=== PATIENT | female | born 1975 | race Caucasian/White ===

== ENCOUNTER 2019-07-17 16:25 | Emergency (ER) | payer BC ==
[2019-07-17] MEDS ORDERED: Ketorolac 60 MG/2 ML SDV IM ONE (17:26)
--- NOTE | 2019-07-17 17:31 | EDM.PDOC ---
<Ken Solorio G - Last Filed: 07/17/19 17:58> ED HPI GENERAL MEDICAL PROBLEM - General Chief Complaint: Back Pain or Injury Stated Complaint: LOW BACK PAIN Time Seen by Provider: 07/17/19 17:15 Source of Information: Reports: Patient, Old Records, RN History Limitations: Reports: No Limitations - History of Present Illness INITIAL COMMENTS - FREE TEXT/NARRATIVE: 43 yo female here with L low back pain that began last evening and has progressed since then. She took a dose of acetaminophen last night, but none today. Has tried heat and cold without relief. Has a pHx of arthritis, but this pain is different. Denies injury or recent exertion. Too painful to go to work at [employer] today. drove her here. No attempt to be seen in the clinic. Has Vicodin to use prn for her arthritis pain, but is out now. No urinary sx's. Pain is worse with movement. No radiation down her legs. 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: Other (see below) (heat) Left Back Pain Score (Numeric/FACES): 10 - Related Data Allergies Allergy/AdvReac Type Severity Reaction Status Date / Time No Known Allergies Allergy Verified 07/17/19 16:53 Home Meds: Home Meds NK [No Known Home Meds] 07/17/19 [History] Past Medical History HEENT History: Reports: Impaired 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: Musculoskeletal History: Reports: Back Pain, Chronic, Fracture, Other (See Below ) Other Musculoskeletal History: DJD Neurological History: Reports: Migraines, Other (See Below) Other Neuro History: soliosis - Past Surgical History Female Surgical History: Reports: Section, Tubal Ligation Musculoskeletal Surgical History: Reports: Other (See Below) Other Musculoskeletal Surgeries/Procedures:: ORIF of bilateral ankles Social & Family History - Tobacco Use Smoking Status *Q: Former Smoker Used Tobacco, but Quit: Yes Month/Year Tobacco Last Used: 11/2018 - Caffeine Use Caffeine Use: Reports: Coffee, Soda - Recreational Drug Use Recreational Drug Use: No ED ROS GENERAL - Review of Systems Review Of Systems: See Below Constitutional: Reports: No Symptoms HEENT: Reports: No Symptoms Respiratory: Reports: No Symptoms Cardiovascular: Reports: No Symptoms GI/Abdominal: Reports: No Symptoms : Reports: No Symptoms Musculoskeletal: Reports: Back Pain (L low) Skin: Reports: No Symptoms Neurological: Reports: No Symptoms ED EXAM,LOWER BACK PAIN/INJURY - Physical Exam Exam: See Below Exam Limited By: No Limitations General Appearance: Alert, WD/WN, No Apparent Distress Head: Atraumatic, Normocephalic Respiratory/Chest: No Respiratory Distress, Lungs Clear, Normal Breath Sounds Cardiovascular: Regular Rate, Rhythm, No Edema Back Exam: Normal Inspection, Other (L SI joint pain, no lumbar pain on palpation, but does have increased lumbar pain with truncal movement. ). No: CVA Tenderness (R), CVA Tenderness (L), Muscle Spasm, Paraspinal Tenderness, Vertebral Tenderness Extremities: Normal Inspection, Normal Range of Motion, Non-Tender, No Pedal Edema Neurological: Alert, Normal Mood/Affect, CN II-XII Intact, No Motor/Sensory Deficits, Oriented x 3 Psychiatric: Normal Affect, Normal Mood Skin Exam: Warm, Dry, Intact, Normal Color, No Rash Course - Vital Signs Last Recorded V/S: Last Vital Signs Temp 97.9 F 07/17/19 16:51 Pulse 74 07/17/19 16:51 Resp 16 07/17/19 16:51 BP 141/84 H 07/17/19 16:51 Pulse Ox 98 07/17/19 16:51 - Orders/Labs/Meds Meds: Medications Discontinued Medications Generic Name Dose Route Start Last Admin Trade Name Freq PRN Reason Stop Dose Admin Fentanyl 50 mcg 07/17/19 18:55 07/17/19 19:03 Sublimaze IM 07/17/19 18:56 50 mcg ONETIME ONE Administration Ketorolac Tromethamine 60 mg 07/17/19 17:26 07/17/19 17:44 Toradol IM 07/17/19 17:27 60 mg ONETIME ONE Administration Departure - Departure Disposition: Home, Self-Care 01 Clinical Impression: Chronic SI joint pain - Discharge Information Instructions: Pain Medicine Instructions, Sacroiliac Joint Dysfunction Referrals: PCP,None [Primary Care Provider] - Forms: ED Department Discharge, ED Return to Work/School Form Additional Instructions: Use ibuprofen for baseline pain control use hydrocodone for breakthrough pain please establish with primary care here in [facility] follow-up with primary care in the next 3 to 5 days for further evaluation, call return to the emergency department worsening of symptoms Sepsis Event Note - Evaluation Sepsis Screening Result: No Definite Risk - Focused Exam Vital Signs: Vital Signs Temp Pulse Resp BP Pulse Ox 07/17/19 16:51 97.9 F 74 16 141/84 H 98 07/17/19 16:42 97.9 F 74 16 141/84 H 98 Date Exam was Performed: 07/17/19 Time Exam was Performed: 17:58 <OfficerWoody - Last Filed: 07/17/19 20:29> Departure - Departure Time of Disposition: 20:28 Condition: Fair Sepsis Event Note - Focused Exam Date Exam was Performed: 07/17/19 Time Exam was Performed: 20:22 - Assessment/Plan Plan: Assessment Acuity = acute on chronic Site and laterality = right-sided SI joint pain complicated patient with known history of degenerative joint disease Etiology = unknown Manifestations = none Location of injury = Home Lab values = lumbar films reveal no acute process Plan She had some relief with the initial Toradol injection provided was provided fentanyl 50 mics which provided significant pain relief I therefore should be discharged home with hydrocodone 5/325 1 tab p.o. 3 times daily PRN total #18 she is going to establish with a primary care here [facility] This note was dictated using [employer] voice recognition software please call with any questions on syntax or grammar.
[2019-07-17] MEDS ORDERED: fentaNYL 100 MCG/2 ML SDV IM ONE (18:55)
--- NOTE | 2019-07-17 19:53 | CRLCR ---
INDICATION: Right side L5 pain. TECHNIQUE: Lumbar spine 3 view COMPARISON: None FINDINGS: Bones: Alignment is normal. No fractures or significant bone lesions. Joints: Disc spaces and facets are unremarkable. Soft tissues: Unremarkable. IMPRESSION: Unremarkable lumbar spine. No findings to explain pain. Dictated by Gorge Mendez MD @ 07/17/2019 7:51:53 PM Dictated by: Gorge Mendez MD @ 07/17/2019 19:52:01 (Electronically Signed)
== END 2019-07-17 20:39 | disposition home or self-care (01) ==
LOC: JP.ED 16:25
DX: M53.3 Sacrococcygeal disorders, not elsewhere classified (principal); Z87.891 Personal history of nicotine dependence
CPT/HCPCS: 72100; 96372; 99283; J1885; J3010

== ENCOUNTER 2020-08-31 19:30 | Emergency (ER) | payer BC ==
--- NOTE | 2020-08-31 21:48 | EDM.PDOC ---
ED HPI GENERAL MEDICAL PROBLEM - General Chief Complaint: Genitourinary Problem Stated Complaint: LOWER BACK AND HIP PAIN, POSSIBLE UTI Time Seen by Provider: 08/31/20 21:00 Source of Information: Reports: Patient History Limitations: Reports: No Limitations - History of Present Illness INITIAL COMMENTS - FREE TEXT/NARRATIVE: Lois is a 43 year old female whom [place] the area presenting to ER for severe lower back pain which started 2 days ago after moving (rearranging living room furniture without known injury or concern. Lois tried ibuprofen 400mg and Flexeril without improvement of symptoms at home. Lois has a history of scoliosis with known mild chronic pain but not this severe with pain radiating to bilateral anterior hips and upper lateral thighs. Lois denies any urinary symptoms or abdominal pain but concerned symptoms may be due to urinary tract infection. Lois denies pelvic pain, abnormal vaginal bleeding or pain with intercourse. bilateral lower back Pain Score (Numeric/FACES): 9 - Related Data Allergies Allergy/AdvReac Type Severity Reaction Status Date / Time No Known Allergies Allergy Verified 08/31/20 21:04 Home Meds: Home Meds SUMAtriptan succinate [Imitrex] 50 mg PO ASDIRECTED PRN 08/31/20 [History] Topiramate [Topamax] 25 mg PO DAILY 08/31/20 [History] methocarbamoL [Robaxin] 500 - 1,000 mg PO TID PRN 10 Days #30 tab 08/31/20 [Rx] predniSONE [Prednisone] 40 mg PO DAILY 5 Days #10 tablet 08/31/20 [Rx] Past Medical History HEENT History: Reports: Impaired Vision, Other (See Below) Other HEENT History: glasses Genitourinary History: Reports: None 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: Musculoskeletal History: Reports: Back Pain, Chronic, Fracture, Other (See Below) Other Musculoskeletal History: DJD Neurological History: Reports: Migraines, Other (See Below) Other Neuro History: scoliosis Dermatologic History: Reports: Eczema - Infectious Disease History Infectious Disease History: Reports: Chicken Pox - Past Surgical History HEENT Surgical History: Reports: Oral Surgery Female Surgical History: Reports: Section, Tubal Ligation Musculoskeletal Surgical History: Reports: Other (See Below) Other Musculoskeletal Surgeries/Procedures:: ORIF of bilateral ankles Social & Family History - Tobacco Use Tobacco Use Status *Q: Never Tobacco User - Caffeine Use Caffeine Use: Reports: Soda - Recreational Drug Use Recreational Drug Use: No ED ROS GENERAL - Review of Systems Review Of Systems: Comprehensive ROS is negative, except as noted in HPI. ED EXAM,LOWER BACK PAIN/INJURY - Physical Exam Exam: See Below Exam Limited By: No Limitations General Appearance: Alert, WD/WN, No Apparent Distress Eye Exam: Bilateral Eye: Normal Inspection Ears: Hearing Grossly Normal Nose: Normal Inspection Throat/Mouth: Normal Voice, No Airway Compromise Neck: Normal Inspection Respiratory/Chest: No Respiratory Distress Cardiovascular: Normal Peripheral Pulses GI/Abdominal: Normal Bowel Sounds, Soft, Non-Tender Back Exam: Paraspinal Tenderness, Vertebral Tenderness (lumbar spine right worsen than left to palpation. ) Extremities: Normal Inspection, Normal Range of Motion, Non-Tender Neurological: Alert, Normal Mood/Affect, Normal Dorsiflexion Psychiatric: Normal Affect, Normal Mood Skin Exam: Warm, Dry, Intact, Normal Color Course - Vital Signs Last Recorded V/S: Last Vital Signs Temp 36.5 C 08/31/20 21:06 Pulse 55 L 08/31/20 21:06 Resp 14 08/31/20 21:06 BP 139/90 08/31/20 21:06 Pulse Ox 100 08/31/20 21:06 - Orders/Labs/Meds Orders: Active Orders 24 hr Category Date Time Status Preg Urine [HCG QUALITATIVE,URINE] [URCHEM] Stat Lab 08/31/20 21:16 Ordered UA W/MICROSCOPIC [URIN] Stat Lab 08/31/20 21:16 Ordered Labs: Laboratory Tests 08/31/20 08/31/20 Range/Units 19:46 19:46 Urine Color Yellow (YELLOW) Urine Appearance Clear (CLEAR) Urine pH 5.0 (5.0-8.0) Ur Specific [place] >= 1.030 (1.008-1.030) Urine Protein Negative (NEGATIVE) mg/dL Urine Glucose (UA) Negative (NEGATIVE) mg/dL Urine Ketones Negative (NEGATIVE) mg/dL Urine Occult Blood Negative (NEGATIVE) Urine Nitrite Negative (NEGATIVE) Urine Bilirubin Negative (NEGATIVE) Urine Urobilinogen 0.2 (0.2-1.0) EU/dL Ur Leukocyte Esterase Negative (NEGATIVE) Urine RBC 0-5 (0-5) Urine WBC 0-5 (0-5) Ur Epithelial Cells Rare Amorphous Sediment Not seen Urine Bacteria Rare Urine Mucus Rare Urine HCG, Qual Negative Departure - Departure Time of Disposition: 22:01 Disposition: Home, Self-Care 01 Clinical Impression: Lumbar back sprain - Discharge Information Prescriptions: predniSONE [Prednisone] 40 mg PO DAILY 5 Days #10 tablet methocarbamoL [Robaxin] 500 - 1,000 mg PO TID PRN 10 Days #30 tab PRN Reason: Muscle Spasm - Painful Instructions: Lumbar Sprain, Acute Back Pain, Adult, Lumbosacral Strain, Low Back Sprain or Strain Rehab-SportsMed, Back Injury Prevention Referrals: Irnieo Alexandre 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 Call clinic in am to discuss referral to physical therapy for acute back pain with work limitations. 2. Prednisone 40mg every am with food x 5 days (may cause difficulty sleeping). 3. Robaxin 500mg 1,000 mg every 8 hrs for painful muscle spasms. May take during renetta day if pain and not working/drining. May consider onl;y taking at night. 4. Tylenol 500-1000mg every 6 horsu as needed for mild pain. 5. Naproxen 440 (aleve 2 tablet) every 8-12 hrs with food for pain swelling and inflammation, not same time as Prednisone. OR Ibuprofen 600-800mg every 6-8 hrs with food for pain, swelling and inflammation, not with Naproxen or prednisone. 6. Read stretching recommended before PT appointment. Note for work written. Sepsis Event Note (ED) - Evaluation Sepsis Screening Result: No Definite Risk - Focused Exam Vital Signs: Vital Signs Temp Pulse Resp BP Pulse Ox 08/31/20 21:06 36.5 C 55 L 14 139/90 100 08/31/20 20:45 36.5 C 55 L 14 139/90 100 - My Orders Last 24 Hours: My Active Orders 08/31/20 21:16 Preg Urine [HCG QUALITATIVE,URINE] [URCHEM] Stat UA W/MICROSCOPIC [URIN] Stat - Assessment/Plan Last 24 Hours: My Active Orders 08/31/20 21:16 Preg Urine [HCG QUALITATIVE,URINE] [URCHEM] Stat UA W/MICROSCOPIC [URIN] Stat
== END 2020-08-31 22:17 | disposition home or self-care (01) ==
LOC: JP.ED 19:30
DX: S33.5XXA Sprain of ligaments of lumbar spine, initial encounter (principal); X58.XXXA Exposure to other specified factors, initial encounter
CPT/HCPCS: 81001; 81025; 99283

== ENCOUNTER 2020-11-14 17:07 | Emergency (ER) | payer BC ==
--- NOTE | 2020-11-14 20:29 | EDM.PDOC ---
ED HPI GENERAL MEDICAL PROBLEM - General Chief Complaint: Upper Extremity Injury/Pain Stated Complaint: SWOLLEN FINGER , SLAMMED IN DOOR Time Seen by Provider: 11/14/20 20:10 Source of Information: Reports: Patient History Limitations: Reports: No Limitations - History of Present Illness INITIAL COMMENTS - FREE TEXT/NARRATIVE: Christelle is a 45-year-old female came to the ED for evaluation of a crush injury to her right fourth finger that occurred at 0530 hrs. this morning. Patient has taken her dogs out and somehow a fly got into the house. She had her hand on the door jam while talking on the phone and the fly landed on the back of the door. Her dog lunged at the fly hitting the door and slamming the door on her finger. Since then she has had increased pain and swelling. She has decreased range of motion. There is significant bruising of the proximal phalanx on the right fourth finger. She does have good sensation and distant capillary refill on this finger. Concerned because of the degree of swelling and bruising that she may have fractured the finger. 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: Musculoskeletal History: Reports: Back Pain, Chronic, Fracture, Other (See Below) Other Musculoskeletal History: DJD Neurological History: Reports: Migraines, Other (See Below) Other Neuro History: scoliosis Dermatologic History: Reports: Eczema - Infectious Disease History Infectious Disease History: Reports: Chicken Pox - Past Surgical History HEENT Surgical History: Reports: Oral Surgery Female Surgical History: Reports: Section, Tubal Ligation Musculoskeletal Surgical History: Reports: Other (See Below) Other Musculoskeletal Surgeries/Procedures:: ORIF of bilateral ankles Social & Family History - Tobacco Use Tobacco Use Status *Q: Former Tobacco User Used Tobacco, but Quit: Yes Month/Year Tobacco Last Used: 02/2018 Second Hand Smoke Exposure: No - Caffeine Use Caffeine Use: Reports: Coffee, Soda - Recreational Drug Use Recreational Drug Use: No Review of Systems - Review of Systems Review Of Systems: See Below Constitutional: Reports: No Symptoms Musculoskeletal: Reports: Hand Pain (Right fourth finger pain and swelling), Joint Pain (Swelling and reduced range of motion of the right fourth PIP), Joint Swelling Skin: Reports: Bruising (Significant bruising of the right fourth finger) Neurological: Reports: No Symptoms ED EXAM, GENERAL - Physical Exam Exam: See Below Exam Limited By: No Limitations General Appearance: Alert, Mild Distress Peripheral Pulses: 2+: Radial (R) Extremities: Normal Capillary Refill, Joint Swelling (Significant swelling over the PIP of the right fourth finger with ecchymosis), Limited Range of Motion (Significant reduction in flexion of the right fourth finger at the PIP and DIP secondary to swelling and pain.) Neurological: Alert, Oriented, Normal Cognition, No Motor/Sensory Deficits Skin Exam: Ecchymosis (Ecchymosis over the proximal right fourth phalanx) Course - Vital Signs Last Recorded V/S: Last Vital Signs Temp 36.2 C 11/14/20 20:16 Pulse 72 11/14/20 20:16 Resp 16 11/14/20 20:16 BP 119/88 11/14/20 20:16 Pulse Ox 99 11/14/20 20:16 - Orders/Labs/Meds Orders: Active Orders 24 hr Category Date Time Status Fingers Fourth Digit Rt F8 [CR] Stat Exams 11/14/20 20:10 Taken - Re-Assessments/Exams Free Text/Narrative Re-Assessment/Exam: 11/14/20 20:33 x-rays of the right fourth finger were obtained and show no evidence for an acute fracture. There is significant soft tissue swelling over the PIP. There is no dislocation or malalignment. This likely represents a crush injury with hematoma and joint swelling. We discussed management of this including ice, elevation, ibuprofen and Tylenol to reduce pain and swelling. I encouraged patient to use a tennis ball for gentle range of motion to prevent the joint from becoming stiff. Indications return to the ED were discussed. We will give her a work note taking her off the use of the right hand for the next 7 days. All questions were answered and she was in agreement with the plan. Departure - Departure Time of Disposition: 20:27 Disposition: Home, Self-Care 01 Clinical Impression: Crushing injury of finger of right hand - Discharge Information Instructions: Crush Injury of the Hand, [id number] Referrals: Irineo Alexandre NP [Primary Care Provider] - Forms: ED Department Discharge Care Plan Goals: I recommend ice and elevation to reduce the swelling. You may take Tylenol or ibuprofen for pain. Ibuprofen will help with reducing the inflammation. I will put you on work restrictions limiting use of right hand for the next 7 days so that we do not risk injuring other fingers at work. As we discussed I would recommend gentle range of motion using a tennis ball so that the joint does not become stiff. Do not do it if it is painful. I would expect this to significan tly improve over the next 4 to 5 days. Sepsis Event Note (ED) - Evaluation Sepsis Screening Result: No Definite Risk - Focused Exam Vital Signs: Vital Signs Temp Pulse Resp BP Pulse Ox 11/14/20 20:16 36.2 C 72 16 119/88 99 11/14/20 20:02 36.2 C 72 16 119/88 99 - Problem List & Annotations (1) Crushing injury of finger of right hand SNOMED Code(s): 24407836333544401, 58997633437300307 Code(s): S67.10XA - CRUSHING INJURY OF UNSPECIFIED FINGER(S), INITIAL ENCOUNTER Status: Acute Priority: Low Current Visit: Yes - Problem List Review Problem List Initiated/Reviewed/Updated: Yes - My Orders Last 24 Hours: My Active Orders 11/14/20 20:10 Fingers Fourth Digit Rt F8 [CR] Stat - Assessment/Plan Last 24 Hours: My Active Orders 11/14/20 20:10 Fingers Fourth Digit Rt F8 [CR] Stat
--- NOTE | 2020-11-16 10:11 | CR ---
Fingers Fourth Digit Rt F8 CLINICAL HISTORY: Injury FINDINGS: There is some soft tissue swelling of the fourth digit. No fracture or dislocation is seen. IMPRESSION: Soft tissue swelling No fracture
== END 2020-11-14 20:40 | disposition home or self-care (01) ==
LOC: JP.ED 17:07
DX: S67.194A Crushing injury of right ring finger, initial encounter (principal); Z87.891 Personal history of nicotine dependence; Z91.030 Bee allergy status; W23.0XXA Caught, crushed, jammed, or pinched between moving objects, initial encounter
CPT/HCPCS: 73140-26-F8; 73140-F8; 99283-25

== ENCOUNTER 2022-10-15 13:44 | Emergency (ER) | payer OTHER, BC | END 2022-10-15 19:00 | disposition home or self-care (01) | LOC: JP.ED 13:44 | DX: S82.001A Unspecified fracture of right patella, initial encounter for closed fracture (principal); Z87.891 Personal history of nicotine dependence; Z86.16 Personal history of COVID-19; Z98.890 Other specified postprocedural states; Z91.030 Bee allergy status; Z91.048 Other nonmedicinal substance allergy status; Z79.899 Other long term (current) drug therapy; W17.89XA Other fall from one level to another, initial encounter; Y92.89 Other specified places as the place of occurrence of the external cause; Y99.0 Civilian activity done for income or pay | CPT/HCPCS: 73562-26-RT; 73562-RT; 99284 ==

== ENCOUNTER 2023-03-20 05:30 | Day surgery (SDC) | payer OTHER, BC ==
[2023-03-20 06:10] LABS: HEMATOCRIT 44.4 % (34.3-46.0); MEAN CORPUSCULAR HEMOGLOBIN 29.2 pg (31.6-35.5); MEAN CORPUSCULAR HGB CONC 33.8 g/dL (31.6-35.5); MEAN CORPUSCULAR VOLUME 86.4 fL (81.4-99.0); RED BLOOD CELL COUNT 5.14 M/uL (3.77-5.24); WHITE BLOOD CELL COUNT,WBC 8.9 K/uL (3.2-11.0)
[2023-03-20 06:30] LABS: A/G RATIO 0.9 (1.2-2.2); ALANINE AMINOTRANSFERASE,ALT 16 U/L (12-78); ALBUMIN 3.6 g/dL (3.4-5.0); ALKALINE PHOSPHATASE 70 U/L (46-116); ANION GAP 9.3 mmol/L (5.0-14.0); ASPARTATE AMNIOTRANSFERASE,AST 19 U/L (15-37); BILIRUBIN TOTAL 0.4 mg/dL (0.2-1.0); BLOOD UREA NITROGEN,BUN 11 mg/dL (7-18); CALCIUM 8.4 mg/dL (8.5-10.1); CARBON DIOXIDE,CO2 27 mmol/L (21-32); CHLORIDE,CL 104 mmol/L (100-108); CREATININE 0.8 mg/dL (0.6-1.0); EST CRCL DRUG DOSING (CG) 78.94 mL/min; ESTIMATED GFR 92 mL/min (>60); GLUCOSE RANDOM 97 mg/dL (74-106); POTASSIUM,K 4.1 mmol/L (3.6-5.2); PROTEIN TOTAL,TP 7.5 g/dL (6.4-8.2); SODIUM,NA 140 mmol/L (140-148)
[2023-03-20] MEDS: Lactated Ringers 1,000 ML IV SCH (06:49)
[2023-03-20] MEDS: Nozin Nasal Sanitizer NASBOTH ONE (06:50)
[2023-03-20] MEDS ORDERED: Ondansetron 4 MG/2 ML SDV ONE (07:21)
[2023-03-20] MEDS ORDERED: Dexamethasone 4 MG/ML SDV ONE (07:21)
[2023-03-20] MEDS ORDERED: Propofol 200 MG/20 ML SDV ONE (07:21)
[2023-03-20] MEDS ORDERED: fentaNYL 100 MCG/2 ML SDV ONE ×2 (07:21→08:14)
[2023-03-20] MEDS ORDERED: Ketorolac 30 MG/ML SDV ONE (07:21)
[2023-03-20] MEDS ORDERED: Midazolam 1 MG/ML 2 ML SDV ONE (07:21)
[2023-03-20] MEDS ORDERED: ceFAZolin 1 GM in Sodium Chloride 0.9% 50 ML IV ONE (07:30)
[2023-03-20] MEDS: ceFAZolin 1 GM in Premix Bag 1 BAG IV ONE (07:45)
[2023-03-20] MEDS: Bupivacaine 0.5% 50 ML MDV ONE (08:20)
[2023-03-20] MEDS: Acetaminophen/HYDROcodone 325-5 MG Tab PO PRN (09:46)
== END 2023-03-20 10:25 | disposition home or self-care (01) ==
LOC: JP.SDS 05:30
PROVIDERS: ATTEND Specialist
DX: M22.41 Chondromalacia patellae, right knee (principal)
CPT/HCPCS: 29999; 36415; 80053; 85027; A9270; J0690; J1100; J1885; J2250; J2405; J2704; J3010; J3490; J7120

== ENCOUNTER 2023-11-09 08:12 | Day surgery (SDC) | payer BC, OTHER ==
[2023-11-09] MEDS: Sodium Chloride 0.9% 1,000 ML IV SCH (08:52)
[2023-11-09] MEDS ORDERED: fentaNYL 50 MCG/ML SDV ONE (08:58)
[2023-11-09] MEDS ORDERED: Midazolam 1 MG/ML 2 ML SDV ONE (08:58)
[2023-11-09] MEDS ORDERED: Propofol 200 MG/20 ML SDV ONE (08:59)
[2023-11-09] MEDS ORDERED: Glycopyrrolate 0.2 MG/ML 2 ML SDV ONE (10:08)
== END 2023-11-09 11:20 | disposition home or self-care (01) ==
LOC: JP.SDS 08:12
PROVIDERS: ATTEND Surgery
DX: Z12.11 Encounter for screening for malignant neoplasm of colon (principal)
CPT/HCPCS: J2250; J2704; J3010; J3490; J7030